=== PATIENT | male | born 1940 | race American Indian/Alaskan Native ===

== ENCOUNTER 2019-05-01 13:04 | Observation (INO) | payer MEDICARE ==
[2019-05-03 08:02] VITALS: BP 132/77
== END 2019-05-03 13:15 | disposition home or self-care (01) ==
LOC: ED 13:04 → 2B-ACE 15:39
PROVIDERS: ADMIT Internal Medicine; ATTEND Internal Medicine
DX: T82.41XA Breakdown (mechanical) of vascular dialysis catheter, initial encounter (principal); I13.2 Hypertensive heart and chronic kidney disease with heart failure and with stage 5 chronic kidney disease, or end stage renal disease; I50.9 Heart failure, unspecified; N18.6 End stage renal disease; I25.10 Atherosclerotic heart disease of native coronary artery without angina pectoris; K21.9 Gastro-esophageal reflux disease without esophagitis; Z99.2 Dependence on renal dialysis; Z79.82 Long term (current) use of aspirin
CPT/HCPCS: 36415; 36589; 36902; 76937; 77001; 80053; 80074; 82962; 83036; 83880; 85025; 85610; 85730; 96374; 96375; 99284; C1725; C1894; G0378; J0360; J1200; J1644; J2250; J2930; J2997; J3010; J7050; G0257; J1815; Q9967